=== PATIENT | male | born 1950 | race Caucasian/White ===

== ENCOUNTER 2019-02-28 06:50 | Day surgery (SDC) | payer MEDICARE, BC ==
[~2019-02-28 06:50] MED LIST: Dextrose 5%-0.45% NaCl 1,000 ML IV SCH; Midazolam 1 MG/ML 2 ML SDV ONE; Sodium Chloride 0.9% 10 ML Syringe FLUSH PRN; fentaNYL 100 MCG/2 ML SDV ONE
[2019-02-28] MEDS ORDERED: Midazolam 1 MG/ML 2 ML SDV IV ONE ×3 (06:51→08:55)
[2019-02-28] MEDS ORDERED: fentaNYL 100 MCG/2 ML SDV IV ONE ×3 (06:51→08:54)
--- NOTE | 2019-02-28 09:31 | OR ---
DATE: 02/28/2019 PROCEDURE PERFORMED: Esophagogastroduodenoscopy and multiple pinch biopsies. INSTRUMENT USED: GIF-HQ190 Olympus video panendoscope. PREMEDICATIONS: No oral or topical anesthesia used. Fentanyl 100 mcg intravenous, Versed 2 mg intravenous. The procedure was done under pulse oximetry, BP recording, and laboratory monitor. INDICATION: The patient with long-standing heartburn, with dysphagia for solids. Esophagogastroduodenoscopy is performed for detection of any active erosive lesions, Garza esophagus and/or malignancy also under consideration, H. pylori status to be determined, endoscopic hemostasis therapy if needed. PROCEDURE IN DETAIL: The scope was passed with ease. Adequate visualization of the esophagus was made from proximal to distal areas. No upper esophageal lesions identified. There was some amount of stricture of the distal esophagus. The tip of the scope could be passed with ease to visualize the gastric mucosa. No uphill or downhill esophageal varices. No Jessica-Mcguire tear. Grade D erosive changes were noted by [place] criteria. No esophageal polyp or tumor mass identified. Sliding hiatal hernia was noted. Gastric fundus examination by retroflexion showed no polypoid lesions. No gastric ulcer, malignant mass, or vascular ectasia identified. Duodenal bulb showed no ulcer visualized. Second part of the duodenum was unremarkable. Multiple pinch biopsies were obtained from the gastric antrum and proximal body and sent for PyloriTek test for H. pylori, and if negative in an hour, the tissue is to be sent for histopathology. No bleeding was noted from any of the visualized areas at the completion of examination. Photographs were taken of the duodenal bulb, gastric antrum, fundus, and distal esophagus. IMPRESSION: 1. Grade D gastroesophageal reflux disease. 2. Peptic esophageal stricture. 3. Sliding hiatal hernia. The patient tolerated the procedure well. [facility] /[id number]
[2019-02-28 11:35] VITALS: BP 129/65; PULSE 77
== END 2019-02-28 11:10 | disposition home or self-care (01) ==
LOC: DL.ENDO 06:50
PROVIDERS: ATTEND Internal Medicine Gastroenterology
DX: K29.50 Unspecified chronic gastritis without bleeding (principal); K22.2 Esophageal obstruction; K21.0 Gastro-esophageal reflux disease with esophagitis; K44.9 Diaphragmatic hernia without obstruction or gangrene; I10 Essential (primary) hypertension; E78.5 Hyperlipidemia, unspecified; E66.09 Other obesity due to excess calories; Z68.32 Body mass index [BMI] 32.0-32.9, adult
CPT/HCPCS: 43239; 87077; J2250; J3010; J7042

== ENCOUNTER 2019-04-18 13:40 | Emergency (ER) | payer MEDICARE, BC ==
[2019-04-18] MEDS ORDERED: Sodium Chloride 0.9% 10 ML Syringe FLUSH PRN (13:51)
--- NOTE | 2019-04-18 13:51 | EDM.PDOC ---
"ED HPI GENERAL MEDICAL PROBLEM - General Chief Complaint: Neuro Symptoms/Deficits Stated Complaint: POSSIBLE STROKE Time Seen by Provider: 04/18/19 13:44 Source of Information: Reports: Patient, Old Records, RN, RN Notes Reviewed, Significant Other History Limitations: Reports: Physical Impairment (Slurred speech) - History of Present Illness INITIAL COMMENTS - FREE TEXT/NARRATIVE: Pt arrives to ER from home by POV with report that pt woke from a nap at 1325HRS with right facial droop, slurred speech, and word finding difficulties. Last known well time: 1230HRS today. Pt denies headache, chest pain, visual changes, difficulty swallowing, neck pain, fever, palpitations, motor weakness of upper or lower extremities, sensation loss to extremities, or loss of bowel or bladder control. Denies fall, head injury, surgery/MT/stroke in last 90 days , or any other contraindications to tPA (see tPA assessment paper form). Onset: Today Onset Date: 04/18/19 (Last known well 12:30HRS today) Duration: Constant Location: Reports: Face Severity: Severe Improves with: Reports: None Worsens with: Reports: None Associated Symptoms: Reports: No Other Symptoms - Related Data Allergies Allergy/AdvReac Type Severity Reaction Status Date / Time No Known Allergies Allergy Verified 02/28/19 07:23 Home Meds: Home Meds amLODIPine [Norvasc] 10 mg PO DAILY 10/04/18 [History] Ciclopirox 1 applic TOP DAILY 02/27/19 [History] Famotidine [Pepcid] 20 mg PO Q12HR 02/27/19 [History] Omeprazole 20 mg PO BID 04/18/19 [History] Past Medical History HEENT History: Reports: Hard of Hearing, Impaired Vision Other HEENT History: WEARS CORRECTIVE LENSES. 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 Musculoskeletal History: Reports: Arthritis Neurological History: Reports: None Psychiatric History: Reports: None Endocrine/Metabolic History: Reports: None Hematologic History: Reports: None Immunologic History: Reports: None Oncologic (Cancer) History: Reports: Prostate, Other (See Below) Other Oncologic History: BASAL CELL Dermatologic History: Reports: Other (See Below) Other Dermatologic History: LEFT TEMPORAL SKIN CANCER BASAL CELL 2019, LEONIDAS PROCEDURE - Infectious Disease History Infectious Disease History: Reports: Other (See Below) Other Infectious Disease History: UNKNOWN - Past Surgical History Head Surgeries/Procedures: Reports: None HEENT Surgical History: Reports: Adenoidectomy, Tonsillectomy Cardiovascular Surgical History: Reports: None Respiratory Surgical History: Reports: None GI Surgical History: Reports: Appendectomy, Cholecystectomy, Colonoscopy, EGD Male Surgical History: Reports: Prostate Biopsy Other Male Surgeries/Procedures: 08-26-2018 Neurological Surgical History: Reports: None Musculoskeletal Surgical History: Reports: None Oncologic Surgical History: Reports: None Dermatological Surgical History: Reports: Skin Biopsy Social & Family History - Family History Family Medical History: Noncontributory - Caffeine Use Caffeine Use: Reports: None - Living Situation & Occupation Living situation: Reports: with Significant Other ED ROS GENERAL - Review of Systems Review Of Systems: Comprehensive ROS is negative, except as noted in HPI. ED EXAM, NEURO - Physical Exam Exam: See Below Exam Limited By: No Limitations General Appearance: Alert, WD/WN, No Apparent Distress, Anxious Eye Exam: Bilateral Eye: EOMI, Normal Fundi, Normal Inspection, PERRL Ears: Normal External Exam, Normal Canal, Hearing Grossly Normal, Normal TMs Nose: Normal Inspection, Normal Mucosa, No Blood Throat/Mouth: Normal Inspection, Normal Lips, Normal Teeth, Normal Gums, Normal Oropharynx, No Airway Compromise Head Exam: Atraumatic, Normocephalic Neck: Normal Inspection, Supple, Non-Tender, Full Range of Motion. No: Carotid Bruit Respiratory/Chest: No Respiratory Distress, Lungs Clear, Normal Breath Sounds, No Accessory Muscle Use, Chest Non-Tender Cardiovascular: Normal Peripheral Pulses, Regular Rate, Rhythm, No Edema, No Gallop, No JVD, No Murmur, No Rub GI/Abdominal: Normal Bowel Sounds, Soft, Non-Tender, No Organomegaly, No Distention, No Abnormal Bruit, No Mass Neurological: Alert, Normal Dorsiflexion, Normal Plantar Flexion, No Motor/ Sensory Deficits, Oriented x 3, Other (Right facial droop, slurred speech, word finding difficulties, no swallowing difficulty, normal vision. NIH score: 3, face droop, slurred speech, dysarthria. ) EKG INTERPRETATION EKG Date: 04/18/19 Time: 03:59 Rhythm: Other (SR) Rate (Beats/Min): 96 Shafter: Normal P-Wave: Present QRS: Other (RVH) ST-T: Normal Comparison: NA - No Prior EKG Course - Vital Signs Last Recorded V/S: Last Vital Signs Temp 97.7 F 04/18/19 13:45 Pulse 102 H 04/18/19 14:00 Resp 17 04/18/19 14:00 BP 160/87 H 04/18/19 14:00 Pulse Ox 96 04/18/19 14:00 - Orders/Labs/Meds Orders: Active Orders 24 hr Category Date Time Status Blood Glucose Check, Bedside [] ONETIME Care 04/18/19 13:52 Active EKG 12 Lead [EKG Documentation Completion] [] STAT Care 04/18/19 13:51 Active NIH Stroke Scale [] ASDIRECTED Care 04/18/19 13:44 Active Peripheral IV Care [] . DIRECTED Care 04/18/19 13:52 Active DRUG SCREEN URINE BIORAD [URCHEM] Stat Lab 04/18/19 14:16 Ordered INR,PT,PROTHROMBIN TIME [COAG] Stat Lab 04/18/19 14:03 Received PTT,PARTIAL THROMBOPLSTIN TIME [COAG] Stat Lab 04/18/19 14:03 Received UA RFX LAMIN AND CULT IF INDIC [URIN] Stat Lab 04/18/19 14:16 Ordered Alteplase [Activase] Med 04/18/19 14:30 Active 73.6 mg IV .INFUSION Sodium Chloride 0.9% [Saline Flush] Med 04/18/19 13:51 Active 10 ml FLUSH ASDIRECTED PRN Peripheral IV Insertion Adult [OM.PC] Stat Oth 04/18/19 13:51 Ordered Medication Orders Alteplase, Recombinant (Activase) 73.6 mg IV .INFUSION [facility] Last Admin: 04/18/19 14:28 Dose: 73.6 mg Sodium Chloride (Saline Flush) 10 ml FLUSH ASDIRECTED PRN PRN Reason: Keep Vein Open Last Admin: 04/18/19 14:05 Dose: 10 ml Labs: Laboratory Tests 04/18/19 04/18/19 04/18/19 Range/Units 13:47 14:03 14:03 WBC 7.4 (5.0-10.0) 10^3/uL RBC 5.70 (4.6-6.2) 10^6/uL Hgb 16.2 (14.0-18.0) g/dL Hct 46.9 (40.0-54.0) % MCV 82.3 (80-100) fL MCH 28.4 (27.0-34.0) pg MCHC 34.5 (33.0-35.0) g/dL Plt Count 248 (150-450) 10^3/uL Neut % (Auto) 59.2 (42.2-75.2) % Lymph % (Auto) 27.2 (20.5-50.1) % Custer % (Auto) 9.8 H (2-8) % Eos % (Auto) 3.5 H (1.0-3.0) % Baso % (Auto) 0.3 (0.0-1.0) % Sodium 139 (135-145) mmol/L Potassium 4.2 (3.6-5.0) mmol/L Chloride 107 (101-111) mmol/L Carbon Dioxide 25.0 (21.0-31.0) mmol/L Anion Gap 11.2 BUN 18 (7-18) mg/dL Creatinine 1.1 (0.6-1.3) mg/dL Est Cr Clr Drug Dosing 54.36 mL/min Estimated GFR (MDRD) > 60 BUN/Creatinine Ratio 16.36 Glucose 118 H (74-105) mg/dL POC Glucose 82 L (83-110) mg/dl Lactic Acid (0.5-2.0) mmol/L Calcium 9.2 (8.4-10.2) mg/dl Total Bilirubin 0.6 (0.2-1.0) mg/dL AST 20 (10-42) IU/L ALT 27 (10-60) IU/L Alkaline Phosphatase 102 (42-121) IU/L Troponin I < 0.02 (0.00-0.02) ng/ml Total Protein 7.2 (6.7-8.2) g/dl Albumin 3.9 (3.2-5.5) g/dl Globulin 3.3 Albumin/Globulin Ratio 1.18 Urine Color (YELLOW) Urine Appearance (CLEAR) Urine pH (5.0-9.0) Ur Specific Cromwell (1.005-1.030) Urine Protein (NEGATIVE) Urine Glucose (UA) (NEGATIVE) Urine Ketones (NEGATIVE) Urine Occult Blood (NEGATIVE) Urine Nitrite (NEGATIVE) Urine Bilirubin (NEGATIVE) Urine Urobilinogen (0.2-1.0) mg/dL Ur Leukocyte Esterase (NEGATIVE) Urine Opiates Screen (NEGATIVE) Ur Oxycodone Screen (NEGATIVE) Urine Methadone Screen (NEGATIVE) Ur Barbiturates Screen (NEGATIVE) U Tricyclic Antidepress (NEGATIVE) Ur Phencyclidine Scrn (NEGATIVE) Ur Amphetamine Screen (NEGATIVE) U Methamphetamines Scrn (NEGATIVE) Urine MDMA Screen (NEGATIVE) U Benzodiazepines Scrn (NEGATIVE) Urine Cocaine Screen (NEGATIVE) U Marijuana (THC) Screen (NEGATIVE) Ethyl Alcohol 2 04/18/19 04/18/19 04/18/19 Range/Units 14:03 14:10 14:10 WBC (5.0-10.0) 10^3/uL RBC (4.6-6.2) 10^6/uL Hgb (14.0-18.0) g/dL Hct (40.0-54.0) % MCV (80-100) fL MCH (27.0-34.0) pg MCHC (33.0-35.0) g/dL Plt Count (150-450) 10^3/uL Neut % (Auto) (42.2-75.2) % Lymph % (Auto) (20.5-50.1) % Custer % (Auto) (2-8) % Eos % (Auto) (1.0-3.0) % Baso % (Auto) (0.0-1.0) % Sodium (135-145) mmol/L Potassium (3.6-5.0) mmol/L Chloride (101-111) mmol/L Carbon Dioxide (21.0-31.0) mmol/L Anion Gap BUN (7-18) mg/dL Creatinine (0.6-1.3) mg/dL Est Cr Clr Drug Dosing mL/min Estimated GFR (MDRD) BUN/Creatinine Ratio Glucose (74-105) mg/dL POC Glucose (83-110) mg/dl Lactic Acid 1.4 (0.5-2.0) mmol/L Calcium (8.4-10.2) mg/dl Total Bilirubin (0.2-1.0) mg/dL AST (10-42) IU/L ALT (10-60) IU/L Alkaline Phosphatase (42-121) IU/L Troponin I (0.00-0.02) ng/ml Total Protein (6.7-8.2) g/dl Albumin (3.2-5.5) g/dl Globulin Albumin/Globulin Ratio Urine Color Light yellow (YELLOW) Urine Appearance Clear (CLEAR) Urine pH 7.0 (5.0-9.0) Ur Specific Cromwell 1.025 (1.005-1.030) Urine Protein Negative (NEGATIVE) Urine Glucose (UA) Negative (NEGATIVE) Urine Ketones Negative (NEGATIVE) Urine Occult Blood Negative (NEGATIVE) Urine Nitrite Negative (NEGATIVE) Urine Bilirubin Negative (NEGATIVE) Urine Urobilinogen 0.2 (0.2-1.0) mg/dL Ur Leukocyte Esterase Negative (NEGATIVE) Urine Opiates Screen Negative (NEGATIVE) Ur Oxycodone Screen Negative (NEGATIVE) Urine Methadone Screen Negative (NEGATIVE) Ur Barbiturates Screen Negative (NEGATIVE) U Tricyclic Antidepress Negative (NEGATIVE) Ur Phencyclidine Scrn Negative (NEGATIVE) Ur Amphetamine Screen Negative (NEGATIVE) U Methamphetamines Scrn Negative (NEGATIVE) Urine MDMA Screen Negative (NEGATIVE) U Benzodiazepines Scrn Negative (NEGATIVE) Urine Cocaine Screen Negative (NEGATIVE) U Marijuana (THC) Screen Negative (NEGATIVE) Ethyl Alcohol Meds: Medications Generic Name Dose Route Start Last Admin Trade Name Freq PRN Reason Stop Dose Admin Alteplase, Recombinant 73.6 mg 04/18/19 14:30 04/18/19 14:28 Activase IV 73.6 mg .INFUSION FELICITY Administration Sodium Chloride 10 ml 04/18/19 13:51 04/18/19 14:05 Saline Flush FLUSH 10 ml ASDIRECTED PRN Administration Keep Vein Open Discontinued Medications Generic Name Dose Route Start Last Admin Trade Name Freq PRN Reason Stop Dose Admin Alteplase, Recombinant 8.2 mg 04/18/19 14:30 04/18/19 14:23 Activase IV 04/18/19 14:31 8.2 mg ONETIME ONE Administration - Radiology Interpretation Free Text/Narrative:: [facility] Final Radiology Report Call: [phone] assistance Online chat: [email or web address] Name: ALLIE CYR Age: 68Years M Date: 04/18/2019 SSN: -- : [id number] Study: CT HEAD WO Requesting Physician: SOSA HORN Images: [id number] Addl Studies: Provided Clinical History: prior CT not available--report sent Contrast: Without Contrast Medium: Contrast Amount: Contrast Method: Page 1 of 2 PROCEDURE INFORMATION: Exam: CT Head Without Contrast Exam date and time: 04/18/2019 1:48 PM Age: 68 years old Clinical indication: Speech disturbance and other: RT facial droop; Slurred speech; Additional info: Prior CT not available--report sent TECHNIQUE: Imaging protocol: Computed tomography of the head without contrast. Radiation optimization: All CT scans at this facility use at least one of these dose optimization techniques: automated exposure control; mA and/or kV adjustment per patient size (includes targeted exams where dose is matched to clinical indication); or iterative reconstruction. Other technique: STROKE PROTOCOL was implemented. COMPARISON: No relevant prior studies available. FINDINGS: Brain: There is no acute intracranial hemorrhage. There is mild lucency in the cerebral white matter, likely microvascular disease although non-specific. Marques white differentiation is intact. There are no extra-axial fluid collections. No evidence of mass. There is no mass effect or midline shift. Ventricles: The ventricles and sulci are enlarged, consistent with age-related volume loss / atrophy. No hydrocephalus. Bones/joints: No acute fracture. Sinuses: Unremarkable as visualized. No acute sinusitis. Mastoid air cells: No significant mastoid effusion. Soft tissues: Unremarkable as visualized. Vasculature: There is vascular calcification. IMPRESSION: ALLIE CYR | Final Radiology Report CONFIDENTIALITY STATEMENT This report is intended only for use by the referring physician, and only in accordance with law. If you received this in error, call [phone]. Page 2 of 2 1. No evidence of acute intracranial abnormality. No evidence of acute infarction, hemorrhage, or mass. 2. Age-related atrophy and mild microvascular disease. ASSESSMENT: ASPECTS ([place] Stroke Program Early CT Score) is 10. Thank you for allowing us to participate in the care of your patient. Dictated and Authenticated by: Reshma Hector MD 04/18/2019 2:00 PM Central Time ([place] & [place]) - Re-Assessments/Exams Free Text/Narrative Re-Assessment/Exam: 04/18/19 14:05 I consulted interventional neurologist, Dr. De Oliveira via [facility] (no interventional neuro. available at [facility]). Dr. Botello advises the pt is a tPA candidate, and Alteplase should be initiated immediately with pt consent and if no contraindications. Pt wishes to have tPA and provides signed consent. Dr. Botello accepts the pt to [facility] in [place] via airlift by rotor. Departure - Departure Time of Disposition: 14:31 Disposition: DC/Tfer to Acute Hospital 02 Condition: Critical Clinical Impression: Acute CVA (cerebrovascular accident) - Discharge Information *PRESCRIPTION DRUG MONITORING PROGRAM REVIEWED*: Not Applicable *COPY OF PRESCRIPTION DRUG MONITORING REPORT IN PATIENT ANDRES: Not Applicable Forms: ED Department Discharge, Interfacility Transfer EMTALA Sepsis Event Note - Focused Exam Vital Signs: Vital Signs Temp Pulse Resp BP Pulse Ox 04/18/19 14:00 102 H 17 160/87 H 96 04/18/19 13:54 98 21 H 154/81 H 100 04/18/19 13:45 97.7 F 98 12 196/141 H 100 Date Exam was Performed: 04/18/19 Time Exam was Performed: 14:39 - My Orders Last 24 Hours: My Active Orders 04/18/19 13:44 NIH Stroke Scale [RC] ASDIRECTED 04/18/19 13:51 EKG 12 Lead [EKG Documentation Completion] [RC] STAT Sodium Chloride 0.9% [Saline Flush] 10 ml FLUSH ASDIRECTED PRN Peripheral IV Insertion Adult [OM.PC] Stat 04/18/19 13:52 Blood Glucose Check, Bedside [] ONETIME Peripheral IV Care [RC] . DIRECTED 04/18/19 14:03 INR,PT,PROTHROMBIN TIME [COAG] Stat PTT,PARTIAL THROMBOPLSTIN TIME [COAG] Stat 04/18/19 14:16 DRUG SCREEN URINE BIORAD [URCHEM] Stat UA RFX LAMIN AND CULT IF INDIC [URIN] Stat 04/18/19 14:30 Alteplase [Activase] 73.6 mg IV .INFUSION - Assessment/Plan Last 24 Hours: My Active Orders 04/18/19 13:44 NIH Stroke Scale [RC] ASDIRECTED 04/18/19 13:51 EKG 12 Lead [EKG Documentation Completion] [RC] STAT Sodium Chloride 0.9% [Saline Flush] 10 ml FLUSH ASDIRECTED PRN Peripheral IV Insertion Adult [OM.PC] Stat 04/18/19 13:52 Blood Glucose Check, Bedside [] ONETIME Peripheral IV Care [RC] . DIRECTED 04/18/19 14:03 INR,PT,PROTHROMBIN TIME [COAG] Stat PTT,PARTIAL THROMBOPLSTIN TIME [COAG] Stat 04/18/19 14:16 DRUG SCREEN URINE BIORAD [URCHEM] Stat UA RFX LAMIN AND CULT IF INDIC [URIN] Stat 04/18/19 14:30 Alteplase [Activase] 73.6 mg IV .INFUSION"
[2019-04-18 14:05] VITALS: BP 160/87; PULSE 102
[2019-04-18 14:30] LABS: ANION GAP 11.2; CHLORIDE,CL 107 mmol/L (101-111); SODIUM,NA 139 mmol/L (135-145)
[2019-04-18 14:44] LABS: PTT,PARTIAL THROMBOPLSTIN TIME 24.1 SEC (22.0-34.0)
== END 2019-04-18 14:50 ==
LOC: DL.ED 13:40
DX: I63.9 Cerebral infarction, unspecified (principal); I10 Essential (primary) hypertension; K21.9 Gastro-esophageal reflux disease without esophagitis; Z79.899 Other long term (current) drug therapy; Z85.46 Personal history of malignant neoplasm of prostate
CPT/HCPCS: 36415; 37195; 70450; 80053; 80305; 80307; 81003; 82962; 83605; 84484; 85025; 85610; 85730; 93005; 93010; 99284; 99285; J2997

== ENCOUNTER 2019-05-20 06:02 | Day surgery (SDC) | payer MEDICARE, BC ==
[~2019-05-20 06:02] MED LIST changes: -Midazolam 1 MG/ML 2 ML SDV ONE; -fentaNYL 100 MCG/2 ML SDV ONE
[2019-05-20] MEDS ORDERED: fentaNYL 100 MCG/2 ML SDV IV ONE ×3 (06:03→06:52)
[2019-05-20] MEDS ORDERED: Midazolam 1 MG/ML 2 ML SDV IV ONE ×3 (06:03→06:53)
[2019-05-20] MEDS ORDERED: Midazolam 1 MG/ML 2 ML SDV ONE (06:06)
[2019-05-20] MEDS ORDERED: fentaNYL 100 MCG/2 ML SDV ONE (06:06)
[2019-05-20 08:58] VITALS: BP 126/75; PULSE 84
--- NOTE | 2019-05-20 09:07 | OR ---
DATE: 05/20/2019 PROCEDURE DONE: Esophageal dilatation. INSTRUMENT USED: George bougie esophageal dilator, Marshallese size 48. INDICATION: Peptic esophageal stricture. PROCEDURE IN DETAIL: Esophageal dilatation was done with ease using dilator, Marshallese size 48. No blood was noted at dilated tip after completion. IMPRESSION: Peptic esophageal stricture. The patient tolerated the procedure well. [facility] /[id number]
--- NOTE | 2019-05-20 09:07 | OR ---
DATE: 05/20/2019 PROCEDURE: Esophagogastroduodenoscopy. INSTRUMENT USED: GIF-HQ190 Olympus video panendoscope. PREMEDICATIONS: No oral or topical anesthesia used. Fentanyl 100 mcg intravenous, Versed 2 mg intravenous, nasal O2 cannula. The procedure was done under pulse oximetry, BP recording, and alarm security or surveillance monitor. INDICATION: The patient with longstanding difficulties of heartburn and dysphagia, found to have grade D gastroesophageal reflux disease along with peptic esophageal stricture, treated with high-dose PPI. Followup esophagogastroduodenoscopy is done for verification of total healing of esophageal ulcers and rule out malignancy. Esophageal dilatation as indicated. The scope was passed with ease. Adequate visualization of the esophagus was made from proximal to distal areas. No upper esophageal lesions identified. There was some stricture of the distal esophagus, but the tip of the scope was passed with ease to visualize the gastric mucosa. Sliding hiatal hernia was noted. No esophageal tumor mass identified. No uphill or downhill esophageal varices. No evidence of erosive esophagitis by [place] criteria. Gastric fundus examination by retroflexion showed no malignant lesions. No proximal gastric varices noted. No gastric ulcer, malignant mass, or vascular ectasia identified. Some patchy erythema of the antral mucosa was noted. Duodenal bulb showed no ulcer. Visualized second part of the duodenum was unremarkable. No bleeding was noted from any of the visualized areas at the completion of examination. Photographs were taken of the duodenal bulb, gastric antrum, fundus, and distal esophagus. IMPRESSION: 1. Sliding hiatal hernia. 2. Peptic esophageal stricture. The patient tolerated the procedure well. [facility] /[id number]
== END 2019-05-20 09:04 | disposition home or self-care (01) ==
LOC: DL.ENDO 06:02
PROVIDERS: ATTEND Internal Medicine Gastroenterology
DX: K22.2 Esophageal obstruction (principal); K44.9 Diaphragmatic hernia without obstruction or gangrene; K21.9 Gastro-esophageal reflux disease without esophagitis; E78.5 Hyperlipidemia, unspecified; I10 Essential (primary) hypertension; E66.09 Other obesity due to excess calories; Z68.33 Body mass index [BMI] 33.0-33.9, adult
CPT/HCPCS: 43220; 43235; J2250; J3010; J7042

== ENCOUNTER 2019-10-14 01:52 | Emergency (ER) | payer MEDICARE, BC ==
[2019-10-14 02:07] VITALS: BP 137/77; PULSE 86
--- NOTE | 2019-10-14 02:25 | EDM.PDOC ---
ED HPI GENERAL MEDICAL PROBLEM - General Chief Complaint: Chest Pain Stated Complaint: CHEST PAIN Time Seen by Provider: 10/14/19 02:10 Source of Information: Reports: Patient History Limitations: Reports: No Limitations - History of Present Illness INITIAL COMMENTS - FREE TEXT/NARRATIVE: This 69 yo male patient reports to the ED due to 3 different episodes of chest pain. The patient describes his symptoms of more of a "chest blurb" than chest pain. The patient reports he had the first episode at about 1500 today, another when he was on his way to [facility] and one when he got up to use the bathroom (just prior to arrival in the ED). The patient reports he took a drink of warm water and his symptoms went away. The patient reports he took his Omeprazole this morning after eating breakfast. The patient reports a history of "stomach issues" which have been improved with Omeprazole. Onset: Today Duration: Minutes:, Resolved Prior to Arrival Location: Reports: Chest Quality: Reports: Other Severity: Mild Improves with: Reports: Other (Drinking warm water) Worsens with: Reports: None Context: Reports: Other Associated Symptoms: Reports: No Other Symptoms - Related Data Allergies Allergy/AdvReac Type Severity Reaction Status Date / Time No Known Allergies Allergy Verified 10/14/19 02:12 Home Meds: Home Meds amLODIPine [Norvasc] 10 mg PO DAILY 10/04/18 [History] Ciclopirox 1 applic TOP DAILY 02/27/19 [History] Omeprazole 20 mg PO DAILY 04/18/19 [History] Aspirin 325 mg PO DAILY 05/19/19 [History] atorvaSTATin [Lipitor] 40 mg PO DAILY 05/19/19 [History] Past Medical History HEENT History: Reports: Hard of Hearing, Impaired Vision Other HEENT History: WEARS CORRECTIVE LENSES. 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 Musculoskeletal History: Reports: Arthritis Neurological History: Reports: CVA Psychiatric History: Reports: None Endocrine/Metabolic History: Reports: None Hematologic History: Reports: None Immunologic History: Reports: None Oncologic (Cancer) History: Reports: Prostate, Other (See Below) Other Oncologic History: BASAL CELL Dermatologic History: Reports: Other (See Below) Other Dermatologic History: LEFT TEMPORAL SKIN CANCER BASAL CELL 2019, LEONIDAS PROCEDURE - Infectious Disease History Infectious Disease History: Reports: Other (See Below) Other Infectious Disease History: UNKNOWN - Past Surgical History Head Surgeries/Procedures: Reports: None HEENT Surgical History: Reports: Adenoidectomy, Tonsillectomy Cardiovascular Surgical History: Reports: None Respiratory Surgical History: Reports: None GI Surgical History: Reports: Appendectomy, Cholecystectomy, Colonoscopy, EGD Male Surgical History: Reports: Prostate Biopsy Other Male Surgeries/Procedures: 08-26-2018 Neurological Surgical History: Reports: None Musculoskeletal Surgical History: Reports: None Oncologic Surgical History: Reports: None Dermatological Surgical History: Reports: Skin Biopsy Social & Family History - Family History Family Medical History: Noncontributory - Tobacco Use Smoking Status *Q: Never Smoker Second Hand Smoke Exposure: No - Caffeine Use Caffeine Use: Reports: None - Recreational Drug Use Recreational Drug Use: No - Living Situation & Occupation Living situation: Reports: with Significant Other ED ROS GENERAL - Review of Systems Review Of Systems: Comprehensive ROS is negative, except as noted in HPI. ED EXAM, GENERAL - Physical Exam Exam: See Below Exam Limited By: No Limitations General Appearance: Alert, WD/WN, No Apparent Distress, Anxious Eye Exam: Bilateral Eye: EOMI, Normal Inspection, PERRL Ears: Normal External Exam, Normal Canal, Hearing Grossly Normal, Normal TMs Nose: Normal Inspection, Normal Mucosa, No Blood Throat/Mouth: Normal Inspection, Normal Lips, Normal Teeth, Normal Gums, Normal Oropharynx, Normal Voice, No Airway Compromise Head: Atraumatic, Normocephalic Neck: Normal Inspection, Supple, Non-Tender, Full Range of Motion Respiratory/Chest: No Respiratory Distress, Lungs Clear, Normal Breath Sounds, No Accessory Muscle Use, Chest Non-Tender Cardiovascular: Normal Peripheral Pulses, Regular Rate, Rhythm, No Edema, No Gallop, No JVD, No Murmur, No Rub GI/Abdominal: Normal Bowel Sounds, Soft, Non-Tender, No Organomegaly, No D istention, No Abnormal Bruit, No Mass (Male) Exam: Deferred Rectal (Males) Exam: Deferred Back Exam: Normal Inspection, Full Range of Motion, NT Extremities: Normal Inspection, Normal Range of Motion, Non-Tender, Normal Capillary Refill, No Pedal Edema Neurological: Alert, Oriented, CN II-XII Intact, Normal Cognition, Normal Gait, Normal Reflexes, No Motor/Sensory Deficits Psychiatric: Normal Affect, Normal Mood Skin Exam: Warm, Dry, Intact, Normal Color, No Rash Lymphatic: No Adenopathy Course - Vital Signs Last Recorded V/S: Last Vital Signs Temp 36.1 C 10/14/19 01:58 Pulse 86 10/14/19 01:58 Resp 18 10/14/19 01:58 BP 137/77 10/14/19 01:58 Pulse Ox 98 10/14/19 01:58 - Orders/Labs/Meds Orders: Active Orders 24 hr Category Date Time Status EKG Documentation Completion [RC] STAT Care 10/14/19 01:54 Active Labs: Laboratory Tests 10/14/19 10/14/19 Range/Units 02:04 02:04 WBC 8.4 (5.0-10.0) 10^3/uL RBC 5.67 (4.6-6.2) 10^6/uL Hgb 16.2 (14.0-18.0) g/dL Hct 47.6 (40.0-54.0) % MCV 84.0 (80-100) fL MCH 28.6 (27.0-34.0) pg MCHC 34.0 (33.0-35.0) g/dL Plt Count 241 (150-450) 10^3/uL Neut % (Auto) 60.3 (42.2-75.2) % Lymph % (Auto) 26.3 (20.5-50.1) % [place] % (Auto) 8.9 H (2-8) % Eos % (Auto) 4.3 H (1.0-3.0) % Baso % (Auto) 0.2 (0.0-1.0) % Sodium 139 (136-145) mmol/L Potassium 3.9 (3.5-5.1) mmol/L Chloride 105 (98-107) mmol/L Carbon Dioxide 26 (21-32) mmol/L Anion Gap 11.9 (7-13) mEq/L BUN 21 H (7-18) mg/dL Creatinine 1.13 (0.70-1.30) mg/dL Est Cr Clr Drug Dosing 52.16 mL/min Estimated GFR (MDRD) > 60 BUN/Creatinine Ratio 18.6 (No establ ref range) Glucose 172 H (74-99) mg/dL Calcium 8.6 (8.5-10.1) mg/dL Total Bilirubin 0.4 (0.2-1.0) mg/dL AST 17 (15-37) U/L ALT 34 (16-63) U/L Alkaline Phosphatase 157 H (46-116) U/L Troponin I < 0.017 (0.000-0.056) ng/mL Total Protein 7.3 (6.4-8.2) g/dL Albumin 3.5 (3.4-5.0) g/dL Globulin 3.8 Albumin/Globulin Ratio 0.9 Departure - Departure Time of Disposition: 02:39 Disposition: Home, Self-Care 01 Condition: Fair Clinical Impression: GERD (gastroesophageal reflux disease) Qualifiers: Esophagitis presence: with esophagitis Qualified Code(s): K21.0 - Gastro- esophageal reflux disease with esophagitis Instructions: Nonspecific Chest Pain, Adult, [id number], Gastroesophageal Reflux Disease, Adult, [id number] Forms: ED Department Discharge Care Plan Goals: The patient was advised of the examination, lab and EKG results during the visit. The patient was encouraged to continue to monitor for any additional symptoms. The patient should continue to take his prescribed medications as ordered. If the patient has any additional symptoms or concerns, the patient should either return to the emergency department or visit his primary care facility. Sepsis Event Note (ED) - Evaluation Sepsis Screening Result: No Definite Risk - Focused Exam Vital Signs: Vital Signs Temp Pulse Resp BP Pulse Ox 10/14/19 01:58 36.1 C 86 18 137/77 98 - My Orders Last 24 Hours: My Active Orders 10/14/19 01:54 EKG Documentation Completion [RC] STAT - Assessment/Plan Last 24 Hours: My Active Orders 10/14/19 01:54 EKG Documentation Completion [RC] STAT
[2019-10-14 02:31] LABS: ANION GAP 11.9 mEq/L (7-13); CHLORIDE,CL 105 mmol/L (98-107); SODIUM,NA 139 mmol/L (136-145)
== END 2019-10-14 02:51 | disposition home or self-care (01) ==
LOC: DL.ED 01:52
DX: K21.0 Gastro-esophageal reflux disease with esophagitis (principal); E78.00 Pure hypercholesterolemia, unspecified; I10 Essential (primary) hypertension; M19.90 Unspecified osteoarthritis, unspecified site; Z90.09 Acquired absence of other part of head and neck; Z90.89 Acquired absence of other organs; Z79.899 Other long term (current) drug therapy; Z79.82 Long term (current) use of aspirin; Z90.49 Acquired absence of other specified parts of digestive tract; Z98.890 Other specified postprocedural states; Z86.73 Personal history of transient ischemic attack (TIA), and cerebral infarction without residual deficits
CPT/HCPCS: 36415; 80053; 84484; 85025; 93005; 99283; 99285-25

== ENCOUNTER 2020-12-08 19:32 | Emergency (ER) | payer MEDICARE, BC ==
[2020-12-08 20:04] VITALS: BP 159/105; PULSE 90
--- NOTE | 2020-12-08 20:07 | EDM.PDOC ---
ED HPI GENERAL MEDICAL PROBLEM - General Stated Complaint: LEFT LEG MOBILITY, LEFT ARM. LIMITED MOVEMENT Time Seen by Provider: 12/08/20 19:57 Source of Information: Reports: Patient, RN, RN Notes Reviewed History Limitations: Reports: No Limitations - History of Present Illness INITIAL COMMENTS - FREE TEXT/NARRATIVE: Julian is a 70 y/o male with history of CVA who presents to the ED via personal vehicle with complaints of fall and transient left arm and leg weakness. The patient reports he was chasing a turkey out of his yard approximately one hour ago when his left leg became weak and he fell to his knees. He denies loss of consciousness and did not strike his head during the incident. The patient states his weakness persisted for approximately one minute and has since completely resolved. He denies vision changes, dizziness, headache, facial droop, or upper/lower extremity numbness/tingling. He denies recent illness, fever, shaking chills, chest pain, or shortness of breath. He denies pain to his bilateral knees. He has taken all of his medications as prescribed, including ASA 325mg. He denies tobacco, alcohol, or recreational drug use. - Related Data Allergies Allergy/AdvReac Type Severity Reaction Status Date / Time No Known Allergies Allergy Verified 12/08/20 19:57 Home Meds: Home Meds amLODIPine [Norvasc] 10 mg PO DAILY 10/04/18 [History] Ciclopirox 1 applic TOP DAILY 02/27/19 [History] Omeprazole 20 mg PO DAILY 04/18/19 [History] Aspirin 325 mg PO DAILY 05/19/19 [History] atorvaSTATin [Lipitor] 40 mg PO DAILY 05/19/19 [History] Past Medical History HEENT History: Reports: Hard of Hearing, Impaired Vision Other HEENT History: WEARS CORRECTIVE LENSES. 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 Musculoskeletal History: Reports: Arthritis Neurological History: Reports: CVA Psychiatric History: Reports: None Endocrine/Metabolic History: Reports: None Hematologic History: Reports: None Immunologic History: Reports: None Oncologic (Cancer) History: Reports: Prostate, Other (See Below) Other Oncologic History: BASAL CELL Dermatologic History: Reports: Other (See Below) Other Dermatologic History: LEFT TEMPORAL SKIN CANCER BASAL CELL 2019, LEONIDAS PROCEDURE - Infectious Disease History Infectious Disease History: Reports: Other (See Below) Other Infectious Disease History: UNKNOWN - Past Surgical History Head Surgeries/Procedures: Reports: None HEENT Surgical History: Reports: Adenoidectomy, Tonsillectomy Cardiovascular Surgical History: Reports: None Respiratory Surgical History: Reports: None GI Surgical History: Reports: Appendectomy, Cholecystectomy, Colonoscopy, EGD Male Surgical History: Reports: Prostate Biopsy Other Male Surgeries/Procedures: 08-26-2018 Neurological Surgical History: Reports: None Musculoskeletal Surgical History: Reports: None Oncologic Surgical History: Reports: None Dermatological Surgical History: Reports: Skin Biopsy Social & Family History - Family History Family Medical History: No Pertinent Family History - Caffeine Use Caffeine Use: Reports: None - Living Situation & Occupation Living situation: Reports: with Significant Other ED ROS GENERAL - Review of Systems Review Of Systems: Comprehensive ROS is negative, except as noted in HPI. ED EXAM, GENERAL - Physical Exam Exam: See Below Exam Limited By: No Limitations General Appearance: Alert, No Apparent Distress Eye Exam: Bilateral Eye: EOMI, Normal Inspection, PERRL (3mm) Ears: Normal External Exam, Normal Canal, Hearing Grossly Normal, Normal TMs Ear Exam: Bilateral Ear: Auricle Normal, Canal Normal, TM normal Nose: Normal Inspection, Normal Mucosa, No Blood Throat/Mouth: Normal Inspection, Normal Oropharynx, Normal Voice, No Airway Compromise Head: Atraumatic, Normocephalic Neck: Normal Inspection, Supple, Non-Tender, Full Range of Motion. No: Lymphadenopathy (L), Lymphadenopathy (R) Respiratory/Chest: No Respiratory Distress, Lungs Clear, Normal Breath Sounds, No Accessory Muscle Use, Chest Non-Tender Cardiovascular: Normal Peripheral Pulses, Regular Rate, Rhythm, No Gallop, No JVD, No Murmur, No Rub. No: No Edema Peripheral Pulses: 2+: Radial (L), Radial (R) GI/Abdominal: Normal Bowel Sounds, Soft, Non-Tender, No Distention, No Abnormal Bruit, No Mass, Pelvis Stable Back Exam: Normal Inspection, Full Range of Motion Extremities: Normal Range of Motion, Non-Tender, Normal Capillary Refill, Pedal Edema (+1 pitting, bilaterally) Neurological: Alert, Oriented, CN II-XII Intact, Normal Cognition, Normal Gait, Normal Reflexes, No Motor/Sensory Deficits. No: Slow to Respond, Memory Loss Remote Events, Memory Loss Recent Events Psychiatric: Normal Affect, Normal Mood Skin Exam: Warm, Dry, Intact, Normal Color, No Rash. No: Cyanosis, Ecchymosis, Erythema, Jaundice, Mottled, Pallor, Petechiae Lymphatic: No Adenopathy Course - Vital Signs Last Recorded V/S: Last Vital Signs Temp 97.3 F 12/08/20 19:45 Pulse 90 12/08/20 19:45 Resp 16 12/08/20 19:45 BP 159/105 H 12/08/20 19:45 Pulse Ox 94 L 12/08/20 19:45 - Orders/Labs/Meds Labs: Laboratory Tests 12/08/20 12/08/20 12/08/20 Range/Units 20:10 20:25 20:25 WBC 8.7 (5.0-10.0) 10^3/uL RBC 5.56 (4.6-6.2) 10^6/uL Hgb 16.0 (14.0-18.0) g/dL Hct 47.1 (40.0-54.0) % MCV 84.7 (80-100) fL MCH 28.8 (27.0-34.0) pg MCHC 34.0 (33.0-35.0) g/dL Plt Count 240 (150-450) 10^3/uL Neut % (Auto) 67.1 (42.2-75.2) % Lymph % (Auto) 20.7 (20.5-50.1) % [place] % (Auto) 9.0 H (2-8) % Eos % (Auto) 3.0 (1.0-3.0) % Baso % (Auto) 0.2 (0.0-1.0) % PT (9.0-12.0) SEC INR (0.9-1.2) APTT (22.0-34.0) SEC Sodium 142 (136-145) mmol/L Potassium 4.2 (3.5-5.1) mmol/L Chloride 106 (98-107) mmol/L Carbon Dioxide 27 (21-32) mmol/L Anion Gap 13.2 H (7-13) mEq/L BUN 18 (7-18) mg/dL Creatinine 1.17 (0.70-1.30) mg/dL Est Cr Clr Drug Dosing 51.04 mL/min Estimated GFR (MDRD) > 60 BUN/Creatinine Ratio 15.4 (No establ ref range) Glucose 116 H (70-99) mg/dL Calcium 8.9 (8.5-10.1) mg/dL Magnesium 2.4 (1.8-2.4) mg/dL Total Bilirubin 0.5 (0.2-1.0) mg/dL AST 22 (15-37) U/L ALT 45 (16-63) U/L Alkaline Phosphatase 150 H (46-116) U/L Troponin I High Sens 24 (<=76) pg/mL Total Protein 7.1 (6.4-8.2) g/dL Albumin 3.4 (3.4-5.0) g/dL Globulin 3.7 Albumin/Globulin Ratio 0.9 Urine Color Yellow (YELLOW) Urine Appearance Clear (CLEAR) Urine pH 8.0 (5.0-9.0) Ur Specific [place] 1.020 (1.005-1.030) Urine Protein Negative (NEGATIVE) Urine Glucose (UA) Negative (NEGATIVE) Urine Ketones Negative (NEGATIVE) Urine Occult Blood Negative (NEGATIVE) Urine Nitrite Negative (NEGATIVE) Urine Bilirubin Negative (NEGATIVE) Urine Urobilinogen 0.2 (0.2-1.0) mg/dL Ur Leukocyte Esterase Negative (NEGATIVE) Ethyl Alcohol < 3 (0) mg/dL 12/08/20 Range/Units 20:25 WBC (5.0-10.0) 10^3/uL RBC (4.6-6.2) 10^6/uL Hgb (14.0-18.0) g/dL Hct (40.0-54.0) % MCV (80-100) fL MCH (27.0-34.0) pg MCHC (33.0-35.0) g/dL Plt Count (150-450) 10^3/uL Neut % (Auto) (42.2-75.2) % Lymph % (Auto) (20.5-50.1) % [place] % (Auto) (2-8) % Eos % (Auto) (1.0-3.0) % Baso % (Auto) (0.0-1.0) % PT 10.1 (9.0-12.0) SEC INR 1.0 (0.9-1.2) APTT 24.1 (22.0-34.0) SEC Sodium (136-145) mmol/L Potassium (3.5-5.1) mmol/L Chloride (98-107) mmol/L Carbon Dioxide (21-32) mmol/L Anion Gap (7-13) mEq/L BUN (7-18) mg/dL Creatinine (0.70-1.30) mg/dL Est Cr Clr Drug Dosing mL/min Estimated GFR (MDRD) BUN/Creatinine Ratio (No establ ref range) Glucose (70-99) mg/dL Calcium (8.5-10.1) mg/dL Magnesium (1.8-2.4) mg/dL Total Bilirubin (0.2-1.0) mg/dL AST (15-37) U/L ALT (16-63) U/L Alkaline Phosphatase (46-116) U/L Troponin I High Sens (<=76) pg/mL Total Protein (6.4-8.2) g/dL Albumin (3.4-5.0) g/dL Globulin Albumin/Globulin Ratio Urine Color (YELLOW) Urine Appearance (CLEAR) Urine pH (5.0-9.0) Ur Specific [place] (1.005-1.030) Urine Protein (NEGATIVE) Urine Glucose (UA) (NEGATIVE) Urine Ketones (NEGATIVE) Urine Occult Blood (NEGATIVE) Urine Nitrite (NEGATIVE) Urine Bilirubin (NEGATIVE) Urine Urobilinogen (0.2-1.0) mg/dL Ur Leukocyte Esterase (NEGATIVE) Ethyl Alcohol (0) mg/dL - Radiology Interpretation Free Text/Narrative:: [facility] Final Radiology Report Call: [phone] assistance Online chat: [email or web address] Name: JULIAN CYR Age: 70Years M Date: 12/08/2020 SSN: -- : [id number] Study: CT HEAD WO CONT Requesting Physician: Kamilah Rose Images: [id number] Addl Studies: Provided Clinical History: Transient left upper/lower extremity weakness Contrast: Without Contrast Medium: Contrast Amount: Contrast Method: Page 1 of 2 PROCEDURE INFORMATION: Exam: CT Head Without Contrast Exam date and time: 12/08/2020 8:29 PM Age: 70 years old Clinical indication: Weakness, extremity; Left; Patient HX: HX stroke; Additional info: Transient left upper/lower extremity weakness TECHNIQUE: Imaging protocol: Computed tomography of the head without contrast. Radiation optimization: All CT scans at this facility use at least one of these dose optimization techniques: automated exposure control; mA and/or kV adjustment per patient size (includes targeted exams where dose is matched to clinical indication); or iterative reconstruction. Other technique: STROKE PROTOCOL was implemented. COMPARISON: CT Head wo Cont 04/18/2019 1:48 PM FINDINGS: Brain: Age-related atrophy and chronic white matter ischemic changes, with no evidence of an acute intracranial abnormality. No hemorrhage, mass effect or midline shift. Cerebral ventricles: No ventriculomegaly. Paranasal sinuses: Visualized sinuses are unremarkable. No fluid levels. Mastoid air cells: Visualized mastoid air cells are well aerated. Bones/joints: No acute fracture. Soft tissues: No acute changes IMPRESSION: 1. Age-related atrophy and chronic white matter ischemic changes, with no evidence of an acute intracranial abnormality. 2. No hemorrhage, mass effect or midline shift. ASSESSMENT: ASPECTS ([place] Stroke Program Early CT Score) is 10. Thank you for allowing us to participate in the care of your patient. Dictated and Authenticated by: Sundar Jacobson DO 12/08/2020 8:38 PM Central Time ([place] & [place]) - Re-Assessments/Exams Free Text/Narrative Re-Assessment/Exam: 12/08/20 Findings of examination, imaging, and lab work reviewed with patient. Patient instructed to follow up with his primary care provider in 3-5 days and his neurologist in 1-2 days. Red flag signs and symptoms which would warrant reevaluation reviewed. Patient verbalized understanding and agreement with the plan of care. Departure - Departure Time of Disposition: 21:23 Disposition: Home, Self-Care 01 Condition: Good Clinical Impression: Bilateral lower extremity edema, Transient weakness of lower extremity, Fall from ground level Hypertension Qualifiers: Hypertension type: primary hypertension Qualified Code(s): I10 - Essential (primary) hypertension - Discharge Information *PRESCRIPTION DRUG MONITORING PROGRAM REVIEWED*: Not Applicable *COPY OF PRESCRIPTION DRUG MONITORING REPORT IN PATIENT ANDRES: Not Applicable Instructions: Fall Prevention in the Home, Adult, Hypertension, Adult Forms: ED Department Discharge Additional Instructions: 1.) Follow up with your primary care provider regarding today's visit in 3-5 days, discuss high blood pressure. 2.) Follow up with your neurologist in 1-2 days regarding today's visit. 3.) Return to the emergency department with any return of symptoms. Sepsis Event Note (ED) - Focused Exam Vital Signs: Vital Signs Temp Pulse Resp BP Pulse Ox 12/08/20 19:45 97.3 F 90 16 159/105 H 94 L
--- NOTE | 2020-12-08 20:38 | CT ---
PROCEDURE INFORMATION: Exam: CT Head Without Contrast Exam date and time: 12/08/2020 8:29 PM Age: 70 years old Clinical indication: Weakness, extremity; Left; Patient HX: HX stroke; Additional info: Transient left upper/lower extremity weakness TECHNIQUE: Imaging protocol: Computed tomography of the head without contrast. Radiation optimization: All CT scans at this facility use at least one of these dose optimization techniques: automated exposure control; mA and/or kV adjustment per patient size (includes targeted exams where dose is matched to clinical indication); or iterative reconstruction. Other technique: STROKE PROTOCOL was implemented. COMPARISON: CT Head wo Cont 04/18/2019 1:48 PM FINDINGS: Brain: Age-related atrophy and chronic white matter ischemic changes, with no evidence of an acute intracranial abnormality. No hemorrhage, mass effect or midline shift. Cerebral ventricles: No ventriculomegaly. Paranasal sinuses: Visualized sinuses are unremarkable. No fluid levels. Mastoid air cells: Visualized mastoid air cells are well aerated. Bones/joints: No acute fracture. Soft tissues: No acute changes IMPRESSION: 1. Age-related atrophy and chronic white matter ischemic changes, with no evidence of an acute intracranial abnormality. 2. No hemorrhage, mass effect or midline shift. ASSESSMENT: ASPECTS ([place] Stroke Program Early CT Score) is 10.
[2020-12-08 20:53] LABS: ANION GAP 13.2 mEq/L (7-13); CHLORIDE,CL 106 mmol/L (98-107); SODIUM,NA 142 mmol/L (136-145)
[2020-12-08 20:58] LABS: PTT,PARTIAL THROMBOPLSTIN TIME 24.1 SEC (22.0-34.0)
== END 2020-12-08 21:36 | disposition home or self-care (01) ==
LOC: DL.ED 19:32
DX: R53.1 Weakness (principal); I10 Essential (primary) hypertension; R60.0 Localized edema; E78.00 Pure hypercholesterolemia, unspecified; K21.9 Gastro-esophageal reflux disease without esophagitis; M19.90 Unspecified osteoarthritis, unspecified site; Z86.73 Personal history of transient ischemic attack (TIA), and cerebral infarction without residual deficits; Z79.82 Long term (current) use of aspirin; Z79.899 Other long term (current) drug therapy; W18.30XA Fall on same level, unspecified, initial encounter; Y92.096 Garden or yard of other non-institutional residence as the place of occurrence of the external cause
CPT/HCPCS: 36415; 70450; 80053; 80307; 81003; 83735; 84484; 85025; 85610; 85730; 93005; 99285-25

== ENCOUNTER 2020-12-11 15:02 | Emergency (ER) | payer MEDICARE, BC ==
[2020-12-11 16:35] VITALS: BP 138/77; PULSE 76
[2020-12-11] MEDS ORDERED: Sodium Chloride 0.9% 10 ML Syringe FLUSH PRN (17:03)
--- NOTE | 2020-12-11 17:33 | EDM.PDOC ---
<Matt Hoff Aniyah - Last Filed: 12/12/20 07:42> ED HPI GENERAL MEDICAL PROBLEM - General Chief Complaint: General Stated Complaint: WEAK ON LEFT SIDE, WAS HERE BEFORE, LIGHT HEADED Time Seen by Provider: 12/11/20 17:15 Source of Information: Reports: Patient History Limitations: Reports: No Limitations - History of Present Illness INITIAL COMMENTS - FREE TEXT/NARRATIVE: 70 y/o M brought in by son for eval of L sided weakness which has been going on for several days as well as dizziness and nausea. The pt reports that the symptoms seem worse as the day progresses. Hx of CVA in Mar 2019 with only slight fine motor skill deficits that have simply resolved. The weakness is primarily in his arms and legs. He was evaluated here recently for the same th ing and lab at ct were unremarkable. The pt PCP Dr. Espinoza is planning on having an MRI done. Olga put pt on Eloquis recently. The pt denies vision problems, the feeling of room spinning, [place], neck pn, cp, db, abd pn, diff voiding, constipation. Onset: Gradual, Unknown/Unsure - Related Data Allergies Allergy/AdvReac Type Severity Reaction Status Date / Time No Known Allergies Allergy Verified 12/11/20 16:29 Home Meds: Home Meds amLODIPine [Norvasc] 10 mg PO DAILY 10/04/18 [History] Ciclopirox 1 applic TOP DAILY 02/27/19 [History] Omeprazole 20 mg PO DAILY 04/18/19 [History] Aspirin 325 mg PO DAILY 05/19/19 [History] atorvaSTATin [Lipitor] 40 mg PO DAILY 05/19/19 [History] Past Medical History HEENT History: Reports: Hard of Hearing, Impaired Vision Other HEENT History: WEARS CORRECTIVE LENSES. HX OF MENIERE'S DISEASE, NO RECENT EPISODE Cardiovascular History: Reports: High Cholesterol, Hypertension Respiratory History: Reports: None Gastrointestinal History: Reports: GERD, Other (See Below) Other Gastrointestinal History: rectal bleed Genitourinary History: Reports: Prostate Disorder Other Genitourinary History: prostate cancer, prostate removed 08-26-18 [employer] History: Reports: None Musculoskeletal History: Reports: Arthritis Neurological History: Reports: CVA Psychiatric History: Reports: None Endocrine/Metabolic History: Reports: None Hematologic History: Reports: None Immunologic History: Reports: None Oncologic (Cancer) History: Reports: Prostate, Other (See Below) Other Oncologic History: BASAL CELL Dermatologic History: Reports: Other (See Below) Other Dermatologic History: LEFT TEMPORAL SKIN CANCER BASAL CELL 2019, LEONIDAS PROCEDURE - Infectious Disease History Infectious Disease History: Reports: Other (See Below) Other Infectious Disease History: UNKNOWN - Past Surgical History Head Surgeries/Procedures: Reports: None HEENT Surgical History: Reports: Adenoidectomy, Tonsillectomy Cardiovascular Surgical History: Reports: None Respiratory Surgical History: Reports: None GI Surgical History: Reports: Appendectomy, Cholecystectomy, Colonoscopy, EGD Male Surgical History: Reports: Prostate Biopsy Other Male Surgeries/Procedures: 08-26-2018 Neurological Surgical History: Reports: None Musculoskeletal Surgical History: Reports: None Oncologic Surgical History: Reports: None Dermatological Surgical History: Reports: Skin Biopsy Social & Family History - Family History Family Medical History: No Pertinent Family History - Tobacco Use Tobacco Use Status *Q: Never Tobacco User - Caffeine Use Caffeine Use: Reports: Coffee - Recreational Drug Use Recreational Drug Use: No - Living Situation & Occupation Living situation: Reports: with Significant Other ED ROS GENERAL - Review of Systems Review Of Systems: Comprehensive ROS is negative, except as noted in HPI. ED EXAM, GENERAL - Physical Exam Exam Limited By: No Limitations General Appearance: Alert, WD/WN, No Apparent Distress Eye Exam: Bilateral Eye: PERRL Ears: Normal External Exam, Normal Canal, Hearing Grossly Normal, Normal TMs Nose: Normal Inspection, Normal Mucosa, No Blood Throat/Mouth: Normal Inspection, Normal Lips, Normal Teeth, Normal Gums, Normal Oropharynx, Normal Voice, No Airway Compromise Head: Atraumatic, Normocephalic Neck: Normal Inspection, Supple, Non-Tender, Full Range of Motion Respiratory/Chest: No Respiratory Distress, Lungs Clear, Normal Breath Sounds, No Accessory Muscle Use, Chest Non-Tender Cardiovascular: Normal Peripheral Pulses, Regular Rate, Rhythm, No Edema, No Gallop, No JVD, No Murmur, No Rub Peripheral Pulses: 1+: Carotid (L), 2+: Carotid (R), Radial (L), Radial (R) GI/Abdominal: Soft, Non-Tender (Male) Exam: Deferred Rectal (Males) Exam: Deferred Back Exam: Normal Inspection, Full Range of Motion, NT Extremities: Normal Inspection, Normal Range of Motion, Non-Tender, Normal Capillary Refill, No Pedal Edema Neurological: Alert, Oriented, CN II-XII Intact, Normal Cognition, Normal Gait, Normal Reflexes, No Motor/Sensory Deficits Psychiatric: Normal Affect, Normal Mood Skin Exam: Warm, Dry, Intact #1 Interpretation EKG Date: 12/11/20 Time: 16:49 Rhythm: NSR [place]: Normal P-Wave: Present QRS: Normal ST-T: Normal QT: Normal Course - Re-Assessments/Exams Free Text/Narrative Re-Assessment/Exam: 12/11/20 19:01 Care taken over by Deneen Mcgill at shift change Departure - Departure Disposition: Home, Self-Care 01 Clinical Impression: Left hemiparesis - Discharge Information Instructions: Hemiparesis Referrals: PCP,None [Primary Care Provider] - Forms: ED Department Discharge Additional Instructions: Continue taking Eliquis as well as other home prescribed medications Follow-up with Dr. Juarez on Sunday morning for scheduling an MRI and echo Return to the ER with any worsening of symptoms <Deneen Mcgill - Last Filed: 12/12/20 22:51> ED ROS GENERAL - Review of Systems Review Of Systems: Comprehensive ROS is negative, except as noted in HPI. ED EXAM, GENERAL - Physical Exam Exam: See Below Course - Vital Signs Last Recorded V/S: Last Vital Signs Temp 98.9 F 12/11/20 16:34 Pulse 76 12/11/20 16:34 Resp 16 12/11/20 16:34 BP 138/77 12/11/20 16:34 Pulse Ox 95 12/11/20 16:34 - Orders/Labs/Meds Labs: Laboratory Tests 12/11/20 12/11/20 12/11/20 Range/Units 17:11 17:11 17:11 WBC 8.9 (5.0-10.0) 10^3/uL RBC 5.74 (4.6-6.2) 10^6/uL Hgb 16.4 (14.0-18.0) g/dL Hct 48.8 (40.0-54.0) % MCV 85.0 (80-100) fL MCH 28.6 (27.0-34.0) pg MCHC 33.6 (33.0-35.0) g/dL Plt Count 246 (150-450) 10^3/uL Neut % (Auto) 62.7 (42.2-75.2) % Lymph % (Auto) 24.7 (20.5-50.1) % [place] % (Auto) 10.6 H (2-8) % Eos % (Auto) 1.8 (1.0-3.0) % Baso % (Auto) 0.2 (0.0-1.0) % Sodium 143 (136-145) mmol/L Potassium 4.5 (3.5-5.1) mmol/L Chloride 106 (98-107) mmol/L Carbon Dioxide 29 (21-32) mmol/L Anion Gap 12.5 (7-13) mEq/L BUN 19 H (7-18) mg/dL Creatinine 1.15 (0.70-1.30) mg/dL Est Cr Clr Drug Dosing 48.62 mL/min Estimated GFR (MDRD) > 60 BUN/Creatinine Ratio 16.5 (No establ ref range) Glucose 85 (70-99) mg/dL Calcium 9.0 (8.5-10.1) mg/dL Phosphorus 4.1 (2.6-4.7) mg/dL Magnesium 2.5 H (1.8-2.4) mg/dL Total Bilirubin 0.7 (0.2-1.0) mg/dL AST 20 (15-37) U/L ALT 43 (16-63) U/L Alkaline Phosphatase 138 H (46-116) U/L Creatine Kinase 133 (39-308) U/L Troponin I High Sens 8 (<=76) pg/mL C-Reactive Protein < 0.2 (0.0-0.9) mg/dL Total Protein 7.1 (6.4-8.2) g/dL Albumin 3.4 (3.4-5.0) g/dL Globulin 3.7 Albumin/Globulin Ratio 0.9 TSH, Ultra Sensitive 1.19 (0.36-3.74) uIU/mL Meds: Medications Discontinued Medications Generic Name Dose Route Start Last Admin Trade Name Freq PRN Reason Stop Dose Admin Iopamidol 100 ml 12/11/20 17:54 12/11/20 19:58 Iopamidol 755 Mg/Ml 100 Ml Bottle IVPUSH 12/11/20 17:55 75 ml ONETIME ONE Administration Sodium Chloride 10 ml 12/11/20 17:03 10/02/21 18:21 Sodium Chloride 0.9% 10 Ml Syringe FLUSH 10 ml ASDIRECTED PRN Administration Keep Vein Open - Radiology Interpretation Free Text/Narrative:: CTA: [facility] [place] [facility] Final Radiology Report Call: [phone] assistance Online chat: [email or web address] Name: ALLIE CYR Age: 70Years M Date: 12/11/2020 SSN: -- : [id number] Study: CT ANG HEAD Requesting Physician: Matt Hoff Images: [id number] Addl Studies: Provided Clinical History: R side weakness dizziness Contrast: With Contrast Medium: Isovue 370 Contrast Amount: 75 mL Contrast Method: Intravenous (IV) Page [address] angiogram of the head and neck: 12/11/2020 7:39 PM PROVIDED CLINICAL HISTORY: R side weakness dizziness Corrected history per verbal discussion with nurse practitioner Deneen Sun: LEFT sided weakness. TECHNIQUE: IV contrast enhanced helically acquired axial thin cut CT angiography from the distal trachea through the cranial vertex. Multiplanar and curved planar reformatted and 3D reconstructed images are submitted. This CT exam was performed using one or more of the foll owing dose reduction techniques: automated exposure control, adjustment of the mA and/or kV according to patient size, and/or use of iterative reconstruction technique. COMPARISON: Head CT scan dated 12/08/2020 FINDINGS: Although mildly limited by skull base beam hardening, centered on image 57 of series 7 is a new inferomedial right frontal hypodensity which measures 3 cm in greatest dimension, and there is an additional smaller and more subtle medial right frontal hypodensity more superiorly, centered on image 47, suspicious for acute infarcts. Otherwise, no intracranial mass or abnormally increased enhancement, midline shift or hydrocephalus, or evidence for acute intracranial hemorrhage. The mandible, mastoid air cells, paranasal sinuses, orbits, skull, and scalp are unremarkable. There are mild to moderate cervical spine degenerative changes. No abnormal soft tissue neck mass or lymphadenopathy, inflammatory process, or fluid collection, and the visualized upper thoracic structures are unremarkable. The cervical carotid and vertebral arteries are patent bilaterally, without dissection or occlusion, although there are atherosclerotic plaques involving the origins of both technical internship al carotid arteries, but there is less than 50% stenosis of both proximal internal carotid arteries by NASCET criteria. There is irregular high-grade stenosis of the A3 segment of the right anterior c erebral artery. Normal caliber and IV contrast opacification of the remaining intracranial branches of the internal carotid and vertebral arteries, without aneurysmal dilatation, large artery occlusion, evidence for vascular malformation, or other abnormal stenosis. 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 The dural venous sinuses are unremarkable. IMPRESSION: --No intracranial large artery occlusion, but there is irregular high-grade stenosis of the A3 segment of the right anterior cerebral artery, and although mildly limited by skull base beam hardening, there is a new inferomedial right frontal hypodensity which measures 3 cm in greatest dimension, and an additional smaller and more subtle medial right frontal hypodensity more superiorly, suspicious for acute infarcts; recommend further evaluation with brain MRI. --The cervical carotid and vertebral arteries are patent bilaterally, without dissection or occlusion, although there are atherosclerotic plaques involving the origins of both internal carotid arteries, but there is less than 50% stenosis of both proximal internal carotid arteries by NASCET criteria; however, further evaluation and correlation with nonemergent carotid duplex ultrasound may be considered if clinically indicated. COMMENT: THIS REPORT CONTAINS FINDINGS THAT MAY BE CRITICAL TO PATIENT CARE. The exam findings were verbally communicated by me to nurse practitioner Deneen Sun via telephone conference at 9:13 PM CDT on 12/11/2020. The findings were acknowledged and understood. Thank you for allowing us to participate in the care of your patient. Dictated and Authenticated by: Chandana Pathak MD 12/11/2020 9:43 PM Central Time ([place] & [place]) - Re-Assessments/Exams Free Text/Narrative Re-Assessment/Exam: 12/11/202038 Discussed patient case with Dr. Sims, Stroke Neurologist at [facility]. He viewed the CTA and states he would recommend MRI and ECHO and follow up with stroke neurology in 1 week. Continue taking the Eloquis that Dr. Hammer had started. After [facility] called back with results, I did call Dr. Sims back and let him know what the Radiologist had stated regarding the CTA. He states we will stick with the original plan. Departure - Departure Time of Disposition: 21:04 Condition: Fair - Discharge Information *PRESCRIPTION DRUG MONITORING PROGRAM REVIEWED*: No *COPY OF PRESCRIPTION DRUG MONITORING REPORT IN PATIENT ANDRES: No
[2020-12-11 17:47] LABS: ANION GAP 12.5 mEq/L (7-13); CHLORIDE,CL 106 mmol/L (98-107); SODIUM,NA 143 mmol/L (136-145)
[2020-12-11] MEDS ORDERED: Iopamidol 755 Mg/ML 100 ML Bottle IVPUSH ONE (17:54)
--- NOTE | 2020-12-11 21:44 | CT ---
CT angiogram of the head and neck: 12/11/2020 7:39 PM PROVIDED CLINICAL HISTORY: R side weakness dizziness Corrected history per verbal discussion with nurse practitioner Deneen Sun: LEFT sided weakness. TECHNIQUE: IV contrast enhanced helically acquired axial thin cut CT angiography from the distal trachea through the cranial vertex. Multiplanar and curved planar reformatted and 3D reconstructed images are submitted. This CT exam was performed using one or more of the following dose reduction techniques: automated exposure control, adjustment of the mA and/or kV according to patient size, and/or use of iterative reconstruction technique. COMPARISON: Head CT scan dated 12/08/2020 FINDINGS: Although mildly limited by skull base beam hardening, centered on image 57 of series 7 is a new inferomedial right frontal hypodensity which measures 3 cm in greatest dimension, and there is an additional smaller and more subtle medial right frontal hypodensity more superiorly, centered on image 47, suspicious for acute infarcts. Otherwise, no intracranial mass or abnormally increased enhancement, midline shift or hydrocephalus, or evidence for acute intracranial hemorrhage. The mandible, mastoid air cells, paranasal sinuses, orbits, skull, and scalp are unremarkable. There are mild to moderate cervical spine degenerative changes. No abnormal soft tissue neck mass or lymphadenopathy, inflammatory process, or fluid collection, and the visualized upper thoracic structures are unremarkable. The cervical carotid and vertebral arteries are patent bilaterally, without dissection or occlusion, although there are atherosclerotic plaques involving the origins of both internal carotid arteries, but there is less than 50% stenosis of both proximal internal carotid arteries by NASCET criteria. There is irregular high-grade stenosis of the A3 segment of the right anterior cerebral artery. Normal caliber and IV contrast opacification of the remaining intracranial branches of the internal carotid and vertebral arteries, without aneurysmal dilatation, large artery occlusion, evidence for vascular malformation, or other abnormal stenosis. 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 The dural venous sinuses are unremarkable. IMPRESSION: --No intracranial large artery occlusion, but there is irregular high-grade stenosis of the A3 segment of the right anterior cerebral artery, and although mildly limited by skull base beam hardening, there is a new inferomedial right frontal hypodensity which measures 3 cm in greatest dimension, and an additional smaller and more subtle medial right frontal hypodensity more superiorly, suspicious for acute infarcts; recommend further evaluation with brain MRI. --The cervical carotid and vertebral arteries are patent bilaterally, without dissection or occlusion, although there are atherosclerotic plaques involving the origins of both internal carotid arteries, but there is less than 50% stenosis of both proximal internal carotid arteries by NASCET criteria; however, further evaluation and correlation with nonemergent carotid duplex ultrasound may be considered if clinically indicated. COMMENT: THIS REPORT CONTAINS FINDINGS THAT MAY BE CRITICAL TO PATIENT CARE. The exam findings were verbally communicated by me to nurse practitioner Deneen Sun via telephone conference at 9:13 PM CDT on 12/11/2020. The findings were acknowledged and understood.
== END 2020-12-11 21:11 | disposition home or self-care (01) ==
LOC: DL.ED 15:02
DX: I69.354 Hemiplegia and hemiparesis following cerebral infarction affecting left non-dominant side (principal); I10 Essential (primary) hypertension; E78.00 Pure hypercholesterolemia, unspecified; K21.9 Gastro-esophageal reflux disease without esophagitis; Z79.82 Long term (current) use of aspirin; Z79.899 Other long term (current) drug therapy
CPT/HCPCS: 36415; 70496; 70498; 80053; 82550; 83735; 84100; 84443; 84484; 85025; 86140; 93005; 99285; Q9967

== ENCOUNTER → 2023-04-16 | Day surgery (SDC) | payer MEDICARE, BC ==
[~2023-04-16] MED LIST changes: -Dextrose 5%-0.45% NaCl 1,000 ML IV SCH; +Midazolam 1 MG/ML 2 ML SDV IV ONE; +Midazolam 1 MG/ML 2 ML SDV ONE; -Sodium Chloride 0.9% 10 ML Syringe FLUSH PRN; +fentaNYL 100 MCG/2 ML SDV IV ONE; +fentaNYL 100 MCG/2 ML SDV ONE
[2023-04-16] MEDS: Dextrose 5%-0.45% NaCl 1,000 ML IV SCH (05:59)
[2023-04-16] MEDS: fentaNYL 100 MCG/2 ML SDV IV ONE ×2 (06:28→06:29)
[2023-04-16] MEDS: Midazolam 1 MG/ML 2 ML SDV IV ONE ×5 (06:29→06:37)
[2023-04-16 08:28] VITALS: BP 126/61; PULSE 77
== END ==
LOC: DL.ENDO 05:18
PROVIDERS: ATTEND Internal Medicine Gastroenterology
DX: D12.2 Benign neoplasm of ascending colon (principal); K64.4 Residual hemorrhoidal skin tags; K21.9 Gastro-esophageal reflux disease without esophagitis; I10 Essential (primary) hypertension; E78.00 Pure hypercholesterolemia, unspecified; E66.09 Other obesity due to excess calories; Z68.35 Body mass index [BMI] 35.0-35.9, adult; Z90.49 Acquired absence of other specified parts of digestive tract; Z98.890 Other specified postprocedural states
CPT/HCPCS: 45385; 88305; J2250; J3010; J7042

== ENCOUNTER 2023-12-21 15:20 | Emergency (ER) | payer MEDICARE, BC ==
[2023-12-21 15:31] VITALS: BP 153/77; PULSE 92
== END 2023-12-21 17:06 | disposition home or self-care (01) ==
LOC: DL.ED 15:20
DX: S01.81XA Laceration without foreign body of other part of head, initial encounter (principal); I48.91 Unspecified atrial fibrillation; E78.00 Pure hypercholesterolemia, unspecified; I10 Essential (primary) hypertension; K21.9 Gastro-esophageal reflux disease without esophagitis; Z86.73 Personal history of transient ischemic attack (TIA), and cerebral infarction without residual deficits; Z86.16 Personal history of COVID-19; Z90.49 Acquired absence of other specified parts of digestive tract; Z79.82 Long term (current) use of aspirin; Z79.899 Other long term (current) drug therapy; W17.1XXA Fall into storm drain or manhole, initial encounter
CPT/HCPCS: 12011; 99282